=== PATIENT | male | born 1970 | race African-American/Black ===

== ENCOUNTER 2017-12-03 09:05 | Observation (INO) ==
[2017-12-03] MEDS ORDERED: ASPIRIN 325 MG TABLET PO STA (09:24)
[2017-12-03] MEDS ORDERED: SODIUM CHLORIDE 0.9% 1,000 ML IV STA (09:24)
[2017-12-03] MEDS ORDERED: METOPROLOL TARTRATE 5 MG/5 ML VIAL IV STA (09:25)
[2017-12-03] MEDS ORDERED: METOPROLOL TARTRATE 5 MG/5 ML VIAL IV ONE (09:28)
[2017-12-03] MEDS ORDERED: ASPIRIN 325 MG TABLET ONE (09:28)
[2017-12-03 10:06] LABS: Basophils % 0.2 % (0.0-0.8); Eosinophils % 0.1 % (0.00-10.9); Hematocrit 39.8 VOL% (42.0-52.0); Immature Granulocytes % 0.4 %; Immature Granulocytes Absolute 0.05 #; Lymphocytes # 1.8 10*3/uL (1.4-4.0); Lymphocytes % 13.9 % (21.2-54.2); Mean Corpuscular HGB Conc 35.2 GM/DL (32-36); Mean Corpuscular Hemoglobin 34 PG (27-34); Mean Corpuscular Volume 95.2 FL (87-102); Mean Platelet Volume 12.8 FL (9.6-12.0); Monocytes # 1.2 10*3/uL (0.11-0.8); Neutrophils # 9.9 10*3/uL (1.4-7.4); Neutrophils % 76.4 % (38.7-73.9); Platelet Count 64 T/CUMM (130-400); Red Blood Count 4.18 MC/CUMM (3.8-5.5); White Blood Count 12.9 T/CUMM (4-12)
[2017-12-03 10:12] LABS: Albumin 3.6 G/DL (3.4-5.0); Bilirubin,Total 1.2 MG/DL (0.2-1.0); Calcium 8.7 MG/DL (8.5-10.1); Osmolality,Calculated 264.2 MOS/KG (273-304); Potassium 3.7 MMOL/L (3.5-5.1); Total Protein 7.7 G/DL (6.4-8.3)
[2017-12-03 10:14] LABS: INR 0.8; PT Patient Result 8.9 SECS
[2017-12-03 10:33] LABS: Hypochromasia 1+; Platelet Estimate Decreased
[2017-12-03 10:34] LABS: Giant Platelets Few; Ovalocytes Slight
[2017-12-03] MEDS ORDERED: ONDANSETRON 4 MG/2 ML VIAL IV PRN (12:52)
[2017-12-03] MEDS ORDERED: ACETAMINOPHEN 325 MG TABLET PO PRN (12:52)
[2017-12-03] MEDS ORDERED: LORazepam 2 MG/1 ML VIAL IV PRN (12:54)
[2017-12-03 14:20] LABS: Hepatitis A Ab IgM Result Negative (Negative); Hepatitis B Core IgM Quant 0.24 Index; Hepatitis B Core IgM Result Negative (Negative); Hepatitis B Surface Ag Quant < 0.10 Index; Hepatitis B Surface Ag Result Negative (Negative); Hepatitis C Virus Ab Quant 0.08 Index; Hepatitis C Virus Ab Result Negative (Negative)
[2017-12-03] MEDS ORDERED: amLODIPine 5 MG TABLET PO ONE (18:05)
[2017-12-04 04:36] LABS: Basophils % 0.3 % (0.0-0.8); Eosinophils % 0.3 % (0.00-10.9); Hematocrit 40.1 VOL% (42.0-52.0); Hemoglobin 13.8 GM/DL (14.0-18.0); Immature Granulocytes % 0.6 %; Immature Granulocytes Absolute 0.07 #; Lymphocytes # 1.6 10*3/uL (1.4-4.0); Lymphocytes % 13.6 % (21.2-54.2); Mean Corpuscular HGB Conc 34.4 GM/DL (32-36); Mean Corpuscular Hemoglobin 33 PG (27-34); Mean Corpuscular Volume 95.7 FL (87-102); Mean Platelet Volume 11.7 FL (9.6-12.0); Monocytes # 0.9 10*3/uL (0.11-0.8); Monocytes % 7.9 % (1.7-12.7); Neutrophils % 77.3 % (38.7-73.9); Platelet Count 57 T/CUMM (130-400); Red Blood Count 4.19 MC/CUMM (3.8-5.5); Red Cell Distribution Width 12.9 % (9.3-17.3); White Blood Count 11.7 T/CUMM (4-12)
[2017-12-04 05:00] LABS: Giant Platelets Few; Hypochromasia Slight; Platelet Estimate Decreased
[2017-12-04 05:07] LABS: Free T4 (Free Thyroxine) 0.83 NG/DL (0.76-1.46); Troponin I Only < 0.015 NG/ML (0.00-0.045)
[2017-12-04 05:12] LABS: Albumin 3.3 G/DL (3.4-5.0); Bilirubin,Total 1.5 MG/DL (0.2-1.0); Calcium 8.6 MG/DL (8.5-10.1); Osmolality,Calculated 264.2 MOS/KG (273-304); Potassium 3.5 MMOL/L (3.5-5.1); Risk Ratio 2.08; Thyroid Stimulating Hormone 2.17 uIU/ml (0.358-3.74); Total Protein 7.1 G/DL (6.4-8.3)
[2017-12-04] MEDS ORDERED: ASPIRIN EC 81 MG TABLET PO SCH (09:00)
[2017-12-04] MEDS ORDERED: THIAMINE 100 MG TABLET PO SCH (09:00)
[2017-12-04] MEDS ORDERED: FOLIC ACID 1 MG TABLET PO SCH (09:00)
[2017-12-04] MEDS ORDERED: MULTIVITAMIN (CENTRUM) TABLET PO SCH (09:00)
[2017-12-04] MEDS ORDERED: amLODIPine 5 MG TABLET PO SCH (09:00)
[2017-12-04] MEDS ORDERED: PANTOPRAZOLE 40 MG TABLET PO SCH (09:00)
[2017-12-04 11:47] VITALS: BP 149/93
== END 2017-12-04 15:08 | disposition home or self-care (01) ==
LOC: EDUNIT# → EDBD → N.EDINP 09:05 → N.ED 09:05 → N.EDINP 12:55 → N.TELES 13:04
PROVIDERS: ADMIT Internal Medicine; ATTEND Internal Medicine